=== PATIENT | female | born 1980 ===

== ENCOUNTER 2019-12-27 12:23 | Outpatient (CLI) | payer BC, OTHER | END 2019-12-27 23:59 | disposition home or self-care (01) | LOC: CFH 12:23 | PROVIDERS: ATTEND Family Medicine | DX: N64.4 Mastodynia (principal) | CPT/HCPCS: 76642; 77066; G0279; 77063 ==

== ENCOUNTER 2020-06-02 12:09 | Emergency (ER) | payer OTHER ==
[~2020-06-02] VITALS: Ht 162.6 cm; Wt 63.7 kg
--- NOTE | 2020-06-02 12:53 | NUR ---
PT FROM LOBBIE TO ROOM
--- NOTE | 2020-06-02 13:24 | NUR ---
pt on tele, ua sent,
[2020-06-02] MEDS ORDERED: KETOROLAC 30 MG/1 ML IVPush ONE (14:00)
[2020-06-02] MEDS ORDERED: SODIUM CHLORIDE FLUSH 10ML SYR IVF ONE (14:00)
[2020-06-02] MEDS ORDERED: PROCHLORPERAZINE 5 MG/ML, 2ML IVPush ONE (14:00)
[2020-06-02] MEDS ORDERED: SODIUM CHLORIDE 0.9% 1,000ML IVBOLUS ONE (14:00)
[2020-06-02] MEDS ORDERED: DIPHENHYDRAMINE 50 MG/ML, 1ML IVPush ONE (14:00)
[2020-06-02 14:07] LABS: BASOPHILS % (AUTO) 1 % (0-1); EOSINOPHILS % (AUTO) 4 % (1-7); LYMPHOCYTES % (AUTO) 31 % (22-44); MEAN CORPUSCULAR HEMOGLOBIN 30.4 pg (27.0-34.8); MEAN CORPUSCULAR HGB CONC 34.9 g/dL (32.4-35.8); MEAN PLATELET VOLUME 7.1 fL (7.4-10.4); MONOCYTES % (AUTO) 9 % (2-9); NEUTROPHILS % (AUTO) 56 % (42-75); PLATELET COUNT 339 x10^3/uL (130-400); RED BLOOD COUNT 5.09 x10^6/uL (3.82-5.3); RED CELL DISTRIBUTION WIDTH 12.8 % (9.6-15.2)
[2020-06-02 14:11] LABS: MD NO
[2020-06-02 14:19] LABS: ALANINE AMINOTRANSFERASE 15 U/L (12-78); ALBUMIN 3.7 g/dL (3.4-5.0); ANION GAP 7 mmol/L (5-15); CALCIUM 8.6 mg/dL (8.5-10.1); CHLORIDE 107 mmol/L (98-107); CREATININE 1.07 mg/dL (0.55-1.02)
[2020-06-02 14:21] LABS: ALKALINE PHOSPHATASE 87 U/L (45-117); BILIRUBIN,TOTAL 0.4 mg/dL (0.2-1.0); TOTAL PROTEIN 7.9 g/dL (6.4-8.2)
[2020-06-02] MEDS ORDERED: DIPHENHYDRAMINE 50 MG/ML, 1ML ONE (14:21)
[2020-06-02] MEDS ORDERED: PROCHLORPERAZINE 5 MG/ML, 2ML ONE (14:21)
[2020-06-02] MEDS ORDERED: KETOROLAC 30 MG/1 ML ONE (14:21)
--- NOTE | 2020-06-02 14:28 | NUR ---
pt in bed iv running
--- NOTE | 2020-06-02 15:30 | NUR ---
PT IN BED NO DISTRESS
[2020-06-02 16:27] VITALS: BP 98/62
--- NOTE | 2020-06-02 16:57 | NUR ---
PT DC HOME WALKED OUT SELF WITH STEADY GAIT. IF S&S WORSEN RETURN TO ER
== END 2020-06-02 17:05 | disposition home or self-care (01) ==
LOC: ED 13:06
DX: G43.001 Migraine without aura, not intractable, with status migrainosus (principal); Z87.891 Personal history of nicotine dependence
CPT/HCPCS: 36415; 70450; 80053; 85025; 96361; 96374; 96375; 99285; J0780; J1200; J1885; J7030